=== PATIENT | female | born 1960 | race Caucasian/White ===

== ENCOUNTER 2018-01-14 13:15 | Emergency (ER) | payer MEDICAID ==
[~2018-01-14] VITALS: Ht 162.6 cm; Wt 52.0 kg
[2018-01-14 14:18] LABS: EOSINOPHILS % (AUTO) 0.2 % (0-6); HEMATOCRIT 25.9 % (35.0-45.0); HEMOGLOBIN 8.1 g/dl (12.0-16.0); LYMPHOCYTES # (AUTO) 0.8 X10'3 (1.1-4.8); LYMPHOCYTES % (AUTO) 14.4 % (21-51); MEAN CORPUSCULAR HEMOGLOBIN 24.8 PG (27.0-31.0); MEAN CORPUSCULAR HGB CONC 31.4 % (33.0-36.5); MEAN CORPUSCULAR VOLUME 78.8 FL (78-98); MEAN PLATELET VOLUME 9.4 FL (7.4-10.4); MONOCYTES # (AUTO) 0.3 X10'3 (0-0.9); MONOCYTES % (AUTO) 4.9 % (2-12); NEUTROPHILS # (AUTO) 4.6 X10'3 (1.8-7.7); NEUTROPHILS % (AUTO) 78.9 % (42-75); PLATELET COUNT 147 X10'3 (140-440); RED BLOOD COUNT 3.29 X10'6 (4.20-5.60); RED CELL DISTRIBUTION WIDTH 17.9 % (11.5-14.5); WHITE BLOOD COUNT 5.8 X10'3 (4.5-11.0)
[2018-01-14 14:26] LABS: BASOPHILS % (AUTO) 0.8 % (0-1)
[2018-01-14 14:28] LABS: ALANINE AMINOTRANSFERASE 31 U/L (12-78); ALBUMIN 2.9 G/DL (3.4-5.0); ALBUMIN/GLOBULIN RATIO 0.5 (1.1-1.5); ALKALINE PHOSPHATASE 115 IU/L (46-116); ANION GAP 13 (8-16); ASPARTATE AMINO TRANSFERASE 62 U/L (10-37); BILIRUBIN,TOTAL 2.9 MG/DL (0.1-1.0); BLOOD UREA NITROGEN 7 MG/DL (7-18); BUN/CREATININE RATIO 9.2 (6.6-38.0); CALCIUM 9.2 MG/DL (8.5-10.1); CHLORIDE 98 MMOL/L (99-107); CREATININE 0.76 MG/DL (0.40-0.90); GLUCOSE 126 MG/DL (70-104); POTASSIUM 3.3 MMOL/L (3.5-5.1); SODIUM 137 MMOL/L (135-145); TOTAL PROTEIN 8.8 G/DL (6.4-8.2); eGFR 79 ML/MIN
[2018-01-14 14:32] LABS: INR 1.3 INR; PROTHROMBIN TIME 13.2 SECONDS (9.0-12.0)
[2018-01-14] MEDS ORDERED: ondansetron/PF 4mg/2ml inj IV ONE (14:45)
[2018-01-14] MEDS ORDERED: normal saline 1000ML IV soln IVB ONE (14:45)
[2018-01-14] MEDS ORDERED: pantoprazole 40 MG vial IV ONE (14:45)
[2018-01-14 15:19] LABS: ETHANOL < 0.010 GM/DL (0.0-0.010); LIPASE 76 U/L (73-393); MAGNESIUM 1.2 MG/DL (1.5-2.4)
[2018-01-14 15:28] LABS: PARTIAL THROMBOPLASTIN TIME 25 SECONDS (22-32)
[2018-01-14] MEDS: magnesium 1gm/100ml D5W IVPB 100 ML IV SCH ×2 (16:19→17:52)
[2018-01-14 17:10] LABS: CLARITY,URINE SLIGHTLY CLOUDY (Clear); GLUCOSE, URINE NEGATIVE (Neg); KETONES,URINE TRACE mg/dl (Neg); LEUKOCYTE ESTERASE ,URINE SMALL (Neg); NITRITES, URINE POSITIVE (Neg); OCCULT BLOOD,URINE NEGATIVE (Neg); PH,URINE 6.5 (4.8-8.0); PROTEIN,URINE 30 mg/dl (Neg); UROBILINOGEN,URINE 0.2 E.U/dL (0.2-1.0)
[2018-01-14 17:15] LABS: URINE HCG NEGATIVE (NEG)
[2018-01-14 17:20] LABS: COLOR,URINE ORANGE (Yellow); UA COLLECTION TYPE CLN CATCH MIDSTREAM
[2018-01-14 17:22] LABS: BACTERIA,URINE 3+ /HPF (Neg); MUCUS STRANDS MANY /LPF (Neg); RBC,URINE NONE SEEN /HPF (0-2); SQUAMOUS EPITHELIAL CELL,UR MODERATE /LPF (FEW)
[2018-01-14 17:23] LABS: HYALINE CASTS 0-3 /LPF (NEGATIVE); URINE AMPHETAMINE SCREEN NEGATIVE (Neg); URINE BARBITUATE SCREEN NEGATIVE (Neg); URINE BENZODIAZEPINES SCREEN NEGATIVE (Neg); URINE CANNABINOID SCREEN NEGATIVE (Neg); URINE COCAINE SCREEN NEGATIVE (Neg); URINE METHADONE SCREEN NEGATIVE (Neg); URINE OPIATE SCREEN NEGATIVE (Neg); URINE PHENCYCLIDINE SCREEN NEGATIVE (Neg)
[2018-01-14] MEDS ORDERED: ciprofloxacin 250mg tablet PO ONE (17:35)
[2018-01-14] MEDS ORDERED: ONDA8TAB6 PO (17:39)
[2018-01-14] MEDS ORDERED: CIPR-230 PO (17:39)
[2018-01-14 17:47] LABS: OCCULT BLOOD STOOL NEGATIVE (Neg)
[2018-01-14 18:27] VITALS: BP 108/61
== END 2018-01-14 19:14 | disposition home or self-care (01) ==
LOC: ER 13:16
DX: E83.42 Hypomagnesemia (principal); N39.0 Urinary tract infection, site not specified; D64.9 Anemia, unspecified; Z86.73 Personal history of transient ischemic attack (TIA), and cerebral infarction without residual deficits
CPT/HCPCS: 36415; 71045; 74176; 80053; 80305; 80320; 81001; 81025; 82272; 83690; 83735; 85025; 85610; 85730; 86885; 86900; 86901; 87077; 87088; 87186; 93005; 96365; 96366; 96375; 99285; C9113; J2405

== ENCOUNTER 2018-12-15 20:15 | Emergency (ER) | payer MEDICAID ==
[~2018-12-15] VITALS: Ht 152.4 cm; Wt 50.0 kg
[~2018-12-15 20:15] MED LIST: ONDA8TAB6 PO
[2018-12-15 20:23] VITALS: BP 136/94
[2018-12-15] MEDS ORDERED: CYCL-1 PO (22:03)
[2018-12-15] MEDS ORDERED: ACET-3068 PO (22:03)
[2018-12-15] MEDS ORDERED: HYDROcodone/acetaminophen 5mg/325mg tablet PO ONE (22:05)
[2018-12-15] MEDS ORDERED: cyclobenzaprine 10mg tablet PO ONE (22:05)
== END 2018-12-15 22:44 | disposition home or self-care (01) ==
LOC: ER 20:15
DX: S39.012A Strain of muscle, fascia and tendon of lower back, initial encounter (principal); F10.10 Alcohol abuse, uncomplicated; Z86.73 Personal history of transient ischemic attack (TIA), and cerebral infarction without residual deficits; Z79.899 Other long term (current) drug therapy; Y90.9 Presence of alcohol in blood, level not specified
CPT/HCPCS: 99283

== ENCOUNTER 2022-01-28 13:49 | Emergency (ER) | payer MEDICAID ==
[~2022-01-28] VITALS: Ht 152.4 cm; Wt 48.0 kg
[~2022-01-28 13:49] MED LIST changes: +CYCL-1 PO
[2022-01-28 14:31] VITALS: BP 109/66
[2022-01-28 17:34] LABS: APTT 21 SECONDS (22-32)
[2022-01-28 17:39] LABS: ALANINE AMINOTRANSFERASE 15 U/L (12-78); ALBUMIN 3.5 G/DL (3.4-5.0); ALBUMIN/GLOBULIN RATIO 0.9 (1.1-1.5); ALKALINE PHOSPHATASE 59 IU/L (46-116); ANION GAP 13 (8-16); ASPARTATE AMINO TRANSFERASE 18 U/L (10-37); BILIRUBIN,TOTAL 2.5 MG/DL (0.1-1.0); BLOOD UREA NITROGEN 9 MG/DL (7-18); BUN/CREATININE RATIO 12.9 (6.6-38.0); CALCIUM 9.4 MG/DL (8.5-10.1); CHLORIDE 100 MMOL/L (99-107); ETHANOL < 0.010 GM/DL (0.0-0.010); GLUCOSE 99 MG/DL (70-104); LIPASE 71 U/L (73-393); MAGNESIUM 1.7 MG/DL (1.5-2.4); POTASSIUM 3.8 MMOL/L (3.5-5.1); SODIUM 137 MMOL/L (135-145); TOTAL CARBON DIOXIDE 24.2 MMOL/L (24-32); TOTAL PROTEIN 7.6 G/DL (6.4-8.2); eGFR 86 ML/MIN
[2022-01-28 17:47] LABS: BASOPHILS % (AUTO) 1.1 % (0-1); EOSINOPHILS % (AUTO) 1.3 % (0-6); HEMATOCRIT 26.4 % (35.0-45.0); HEMOGLOBIN 8.1 g/dl (12.0-16.0); LYMPHOCYTES # (AUTO) 1.1 X10'3 (1.1-4.8); LYMPHOCYTES % (AUTO) 35.5 % (21-51); MEAN CORPUSCULAR HEMOGLOBIN 22.2 PG (27.0-31.0); MEAN CORPUSCULAR HGB CONC 30.5 g/dL (33.0-36.5); MEAN CORPUSCULAR VOLUME 72.7 FL (78-98); MEAN PLATELET VOLUME 8.3 FL (7.4-10.4); MONOCYTES # (AUTO) 0.2 X10'3 (0-0.9); MONOCYTES % (AUTO) 6.5 % (2-12); NEUTROPHILS # (AUTO) 1.7 X10'3 (1.8-7.7); NEUTROPHILS % (AUTO) 55.6 % (42-75); PLATELET COUNT 142 X10'3 (140-440); RED BLOOD COUNT 3.64 X10'6 (4.20-5.60); RED CELL DISTRIBUTION WIDTH 18.9 % (11.5-14.5)
[2022-01-28 18:38] LABS: PLATELET ESTIMATE NORMAL
[2022-01-28 18:39] LABS: ANISOCYTOSIS 2+; ELLIPTOCYTES FEW; HYPOCHROMASIA 1+; MICROCYTOSIS 1+
== END 2022-01-28 19:34 | disposition home or self-care (01) ==
LOC: ER 13:49
DX: S80.12XA Contusion of left lower leg, initial encounter (principal); S80.11XA Contusion of right lower leg, initial encounter; D50.9 Iron deficiency anemia, unspecified; Z86.73 Personal history of transient ischemic attack (TIA), and cerebral infarction without residual deficits; Z72.89 Other problems related to lifestyle; Z79.899 Other long term (current) drug therapy; X58.XXXA Exposure to other specified factors, initial encounter; Y93.89 Activity, other specified; Y92.89 Other specified places as the place of occurrence of the external cause; Y99.8 Other external cause status
CPT/HCPCS: 36415; 80053; 80320; 83690; 83735; 85008; 85025; 85610; 85730; 99283